=== PATIENT | female | born 1990 | race Caucasian/White ===

== ENCOUNTER → 2016-10-12 | Outpatient (CLI) | payer OTHER ==
--- NOTE | 2016-10-16 10:32 | Diagnostic Imaging Report ---
Indication: ABD PAIN, history of hepatitis C Technique: Feliciano-scale and duplex images of the upper abdomen were obtained Comparison: May 20, 2014 Findings: . Gallbladder is unremarkable, without stones, wall thickening, nor pericholecystic fluid. . Common bile duct measures mm in diameter. No intrahepatic biliary ductal dilatation. Liver demonstrates normal echogenicity, no focal abnormality. No surface micro-nodularity demonstrated.. Portal vein and hepatic veins are patent.. Pancreas is unremarkable. Spleen is unremarkable. Left kidney measures 10.4 cm in length. Right kidney measures 10.7 cm length. Both kidneys demonstrate normal echogenicity. There is no hydronephrosis. No focal abnormality. . Non-aneurysmal abdominal aorta. Impression: Negative
== END | disposition home or self-care (01) ==
LOC: ULS 09:59
DX: B19.20 Unspecified viral hepatitis C without hepatic coma (principal)
CPT/HCPCS: 76700

== ENCOUNTER 2017-08-11 10:57 | Outpatient (CLI) | payer OTHER ==
--- NOTE | 2017-08-11 12:17 | Diagnostic Imaging Report ---
Indication: History of hepatitis C Technique: Feliciano-scale and duplex images of the upper abdomen were obtained Comparison: 10/12/2016 Findings: Gallbladder is unremarkable, without stones, wall thickening, nor pericholecystic fluid. Common bile duct measures 3 mm in diameter. No intrahepatic biliary ductal dilatation. Liver demonstrates normal echogenicity, no focal abnormality. No surface nodularity. Portal vein and hepatic veins are patent. Pancreas is unremarkable. Spleen is unremarkable. Left kidney measures 9.2 cm in length. Right kidney measures 10.3 cm length. Both kidneys demonstrate normal echogenicity. There is no hydronephrosis. No focal abnormality . Non-aneurysmal abdominal aorta . No significant interim change Impression: Negative
== END 2017-08-11 12:57 | disposition home or self-care (01) ==
LOC: ULS 10:57
DX: B19.20 Unspecified viral hepatitis C without hepatic coma (principal)
CPT/HCPCS: 76700

== ENCOUNTER → 2018-10-19 | Outpatient (CLI) | payer OTHER ==
--- NOTE | 2018-10-19 12:34 | Diagnostic Imaging Report ---
Indication:Abdominal pain Technique: Grayscale and duplex Doppler imaging of the abdomen performed. Comparison: 08/11/2017 Findings: The liver is unremarkable. The gallbladder is unremarkable. The demonstrated part of the pancreas, aorta and IVC show no abnormalities. Both kidneys appear unremarkable. The spleen is normal in size. There is no biliary ductal dilatation identified. Doppler evaluation of the main portal vein shows patency. There is no ascites. No hydronephrosis seen. CBD is 5 mm. Impression: No acute findings.
== END | disposition home or self-care (01) ==
LOC: ULS 09:52
DX: R10.9 Unspecified abdominal pain (principal)
CPT/HCPCS: 76700

== ENCOUNTER 2019-08-16 11:12 | Outpatient (CLI) | payer OTHER ==
--- NOTE | 2019-08-16 13:47 | Diagnostic Imaging Report ---
Indication: Abdominal pain Technique: Grayscale and duplex Doppler imaging of the abdomen performed. Comparison: None Findings: The liver is unremarkable. Doppler interrogation of the main portal vein shows patency with hepatopedal, monophasic flow. There is no biliary ductal dilatation identified. Gallbladder is unremarkable. There demonstrated part of the pancreas, aorta and IVC show no definite abnormalities. Both kidneys appear unremarkable. There is no hydronephrosis. IMPRESSION: No acute findings
== END 2019-08-16 13:12 | disposition home or self-care (01) ==
LOC: ULS 11:12
DX: R10.9 Unspecified abdominal pain (principal)
CPT/HCPCS: 76700